=== PATIENT | female | born 1945 | race Caucasian/White ===

== ENCOUNTER → 2017-09-08 | Outpatient (CLI) | payer MEDICARE ==
[~2017-09-08] MED LIST: ALEN70TA43 PO; ALPR-429 PO; ATEN-1 PO; ATOR-1 PO; ATOR10TA24 PO; ATOR20TA65 PO; AUG875 PO; CHOL200074 PO; DIGO125T73 PO; DOCU100T19 PO; DRON400T4 PO; ENOX60DI10 SQ; FLE100 PO; FLEC50TA16 PO; FLU60SYR30 IM ONLY; HYDR-3078 PO; KET10 PO; LEVE-14 PO; LEVE750T51 PO; LOR5/325 PO; LOR75 PO; MECL25TA9 PO; METO100T20 PO; METO50TA19 PO; OND4 PO; OXYGEN INH; PNEU0.5D3 IM; PROM-110 PO; SERT-184 PO; SERT25TA90 PO; WARF3TAB35 PO; WARF4TAB46 PO; WARF5TAB23 PO
[2017-09-08 11:39] LABS: PLATELET COUNT, AUTOMATED 292 K/uL (150-450)
[2017-09-08 11:49] LABS: LDL CHOLESTEROL 54 mg/dl
== END ==
LOC: LAB 10:26
PROVIDERS: ATTEND Emergency Medicine
DX: I48.0 Paroxysmal atrial fibrillation (principal); E78.5 Hyperlipidemia, unspecified; I10 Essential (primary) hypertension
CPT/HCPCS: 36415; 82040; 82247; 82310; 82374; 82435; 82465; 82565; 82947; 83718; 84075; 84132; 84155; 84295; 84450; 84460; 84478; 84520; 85025

== ENCOUNTER → 2018-09-22 | Outpatient (CLI) | payer MEDICARE ==
[~2018-09-22] MED LIST changes: +LEVE750T4 PO; -LEVE750T51 PO; +MIRT-1 PO
--- NOTE | 2018-09-22 10:28 | RADIOLOGY IMAGING REPORT ---
[place] [facility] [place]IENT NAME: Shirley Mcgowan : 1945 MR: [id number] V: [id number] EXAM DATE: ORDERING PHYSICIAN: MYRON POST TECHNOLOGIST: Location: [facility] - [place] Patient: Shirley Mcgowan : 1945 Visit/Account:[id number] Date of Sevice: 09/22/2018 DEXA Scan Clinical history: Screening. Comparison: 08/27/2016. LUMBAR SPINE: The bone mineral density (BMD) measured from L1-L4 correlates with a Z-score of 0.4 and a T-score of -1.7 which is osteopenic as defined by the World Health Organization. The sergey esponding risk of fracture in the lumbar spine is moderately increased compared with a young adult re [facility] population. This value has increased by 6.7 % since the prior study. More than 5% change is considered significant. HIP: Bone mineral density (BMD) measured in the Left Total Hip region correlates with a Z-score of 0.6 and a T-score of -2.5. The T-score of the femoral neck is -2.4. The lower of the two T-scores is osteopenic bordering on osteoporotic as defined by the World Health Organization. The corresponding risk of fracture in the hip is significantly increased at least fourfold compared with a young adult reference population. This value has increased by 3.7 % since the prior study. More than 5% change is considered significant. Bone mineral density (BMD) measured in the Left Femoral Neck region measures 0.705 g/cm?. IMPRESSION: 1. Lumbar spine: Osteopenic. There has been significant increase in the bone mineral density since the previous exam. 2. 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 There has been no significant change in th e bone mineral density since the previous exam. The next DEXA scan of this patient should include the following sites: L1-L4 and Left hip. FRAX? WHO Fracture Risk Assessment Tool link: <http://www.shef.ac.uk/FRAX/tool.jsp?locationValue=9> PLEASE NOTE: 1) The World Health Organization defines low BMD as follows: T-score Normal > -1 Osteopenia < -1 and > -2.5 Osteoporosis < -2.5 without fractures Established osteoporosis < -2.5 with fractures 2) In general, you may wish to consider: Diagnosis Treatment Follow-up DEXA Normal BMD Prevention 2-3 years Osteopenia Prevention/therapy 1-2 years Osteoporosis Therapy Yearly 3) Fracture risk estimated from the T-score is more accurate for vertebral fractures (often spontane ous) than for hip fractures. Report Dictated By: Gustavo Coppola MD at 09/22/2018 10:21 AM Report E-Signed By: Gustavo Coppola MD at 09/22/2018 10:24 AM WSN:[email or web address]
--- NOTE | 2018-09-22 17:17 | RADIOLOGY IMAGING REPORT ---
FACILITY: [facility] - [place] PATIENT NAME: MEHNAZ VAUGHAN : [id number] MR: [id number] V: [id number] EXAM DATE: [id number] ORDERING PHYSICIAN: MYRON POST TECHNOLOGIST: Andreia Miramontse PROCEDURE:BILATERAL DIGITAL SCREENING MAMMOGRAM WITH CAD ASSISTED INTERPRETATION & 3D TOMOSYNTHESIS COMPARISON:Prior mammograms 08/27/16. INDICATIONS:screening FINDINGS: The breasts are heterogeneously dense which can obscure small masses. The parenchymal pattern has remained stable allowing for difference in mammographic technique & patient positioning. DIAGNOSTIC CATEGORY 1--NEGATIVE. RECOMMENDATIONS: ROUTINE MAMMOGRAM AND CLINICAL EVALUATION. IMPRESSION: BIRADS 1: Negative. No significant abnormality is seen. Dictated by: Alysia Novoa M.D. on 09/22/2018 at 14:27 Transcribed by: BEVERLEY on 09/22/2018 at 14:49 Approved by: Alysia Novoa M.D. on 09/22/2018 at 17:16 [facility]
== END ==
LOC: MAMO 00:49
PROVIDERS: ATTEND Emergency Medicine
DX: Z12.31 Encounter for screening mammogram for malignant neoplasm of breast (principal); M85.89 Other specified disorders of bone density and structure, multiple sites
CPT/HCPCS: 77063; 77067; 77080

== ENCOUNTER → 2018-09-29 | Outpatient (CLI) | payer MEDICARE ==
[~2018-09-29] MED LIST changes: +REGADENOSON 0.4 MG/5 ML SYR ONE
--- NOTE | 2018-09-29 12:33 | RADIOLOGY IMAGING REPORT ---
FACILITY: [facility] [place] PATIENT NAME: Shirley Mcgowan : 1945 MR: [id number] V: [id number] EXAM DATE: [id number] ORDERING PHYSICIAN: NYDIA MARIN TECHNOLOGIST: Location: [facility] - [place] Patient: Shirley Mcgowan : 1945 Visit/Account:[id number] Date of Sevice: 09/29/2018 EXAMINATION: Single isotope SPECT imaging with regadenoson infusion and gated SPECT imaging. DATE OF EXAMINATION: September 29, 2018. DATE OF INTERPRETATION: September 29, 2018. REQUESTING PHYSICIAN: NYDIA MARIN. INDICATION: The patient is a 73-year-old female evaluated for chest pain. PROCEDURE: After informed consent the patient received an intravenous injection of 11.7 mCi of Tc-99 m sestamibi followed at an appropriate time interval by rest imaging. The patient then subsequently received an intravenous infusion of 0.4 mg of regadenoson per protocol without complication. Resting heart rate was 66 bpm with a peak heart rate of 80 bpm. Blood pressure at rest was 103 / 82 and fol lowing infusion was 125 / 93. Baseline EKG demonstrates atrial pacing. There were no EKG changes of ischemia following infusion. Symptoms were nonspecific. The patient then received an intravenous i njection of 32.0 mCi of Tc-99m sestamibi followed by stress imaging. RAW DATA: Examination of the summed raw data revealed a good quality study. MYOCARDIAL PERFUSION: The tomographic images demonstrate normal myocardial perfusion tracer uptake o n both stress and rest images. No fixed or reversible defect noted. GATED IMAGES: The gated images demonstrate an ejection fraction greater than 70% with no wall motion abnormality. IMPRESSION: 1. Normal myocardial perfusion scan with no evidence of ischemia or prior infarction 2. Normal myocardial perfusion scan. 3. Normal LV systolic function; LVEF greater than 70%. 4. Based on the results of this exam, the patient appears to be at low risk for future cardiovascular events. Report Dictated By: Jeanne Howell at 09/29/2018 12:26 PM Report E-Signed By: Jeanne Howell at 09/29/2018 12:28 PM WSN:[id number]
--- NOTE | 2018-09-29 16:31 | RT STRESS TEST REPORT ---
FACILITY: [facility] - [place] PATIENT NAME: MEHNAZ VAUGHAN : [id number] MR: [id number] V: [id number] EXAM DATE: ORDERING PHYSICIAN: WAYLON OTHER TECHNOLOGIST: Minh Acquisition Time: 2018-09-29 09:27:07 Total Exercise Time: 00:01:00 Test Indications: Dizzy Spells Medications: Protocol: LEXISCAN Max HR: 080 BPM 54% of Pred: 147 BPM Max BP: 125/093 mmHG Max Work Load: 1.0 METS resting EKG shows Paced Atrial rythm No ischemic changes noted Impression Unremakable EKG during the tanisha Scan nuclear medicine report to follow Confirmed by HENRIQUE OLSON ([id number]) on 09/29/2018 4:30:44 PM Referred By: MYRON POST Overread By: HENRIQUE OLSON
== END ==
LOC: RESP 01:08
PROVIDERS: ATTEND Internal Medicine Cardiovascular Disease
DX: R07.9 Chest pain, unspecified (principal)
CPT/HCPCS: 78452; 93017; A9500; J2785

== ENCOUNTER → 2018-10-12 | Outpatient (CLI) | payer MEDICARE ==
[~2018-10-12] MED LIST changes: -REGADENOSON 0.4 MG/5 ML SYR ONE
== END ==
LOC: AUD 12:45
PROVIDERS: ATTEND Specialist
DX: H81.13 Benign paroxysmal vertigo, bilateral (principal)
CPT/HCPCS: 92557; 92570

== ENCOUNTER → 2018-11-02 | Outpatient (CLI) | payer MEDICARE ==
--- NOTE | 2018-11-02 13:56 | RADIOLOGY IMAGING REPORT ---
FACILITY: [facility] PATIENT NAME: Shirley Mcgowan : 1945 MR: [id number] V: [id number] EXAM DATE: ORDERING PHYSICIAN: NYDIA MARIN TECHNOLOGIST: Location: [facility] - [place] Patient: Shirley Mcgowan : 1945 Visit/Account:[id number] Date of Sevice: 11/02/2018 CAROTID HISTORY: Postural dizziness with presyncope COMPARISON: None. FINDINGS: Grayscale, duplex and color Doppler interrogation of the extracranial carotid and vertebral arteries was performed bilateral. On the right, peak systolic velocities within the common and internal carotid arteries are 59 and 82 cm/sec respectively. There is a small amount of plaque in the distal right common carotid artery ext ending into the right carotid bulb and proximal right internal carotid artery. Antegrade flow within the common, internal and external carotid arteries as well as vertebral artery. ICA/CCA ratio 1.4. On the left, peak systolic velocities within the common and internal carotid arteries are 55 and 62 c m/sec respectively. A small intimal thickening in the left common carotid artery with a small amount of soft plaque at the left carotid bulb. Antegrade flow within the common, internal and external ca rotid arteries as well as vertebral artery. ICA/CCA ratio 1.1. IMPRESSION: Is a small amount of plaque in the distal right common carotid artery extending into the right caroti d bulb and proximal right internal carotid artery although no hemodynamically significant lesions shiv ntified Small amount of intimal thickening in the left common carotid artery and a small amount soft plaque a t the left carotid bulb Velocity criteria are extrapolated from diameter data as defined by the Society of Radiologists in Ul trasound Consensus Conference Radiology 2003; 229;340-346 Report Dictated By: Alysia Novoa MD at 11/02/2018 1:49 PM Report E-Signed By: Alysia Novoa MD at 11/02/2018 1:51 PM WSN:[email or web address]
== END ==
LOC: US 10-30 13:48
PROVIDERS: ATTEND Internal Medicine Cardiovascular Disease
DX: I65.23 Occlusion and stenosis of bilateral carotid arteries (principal)
CPT/HCPCS: 93880

== ENCOUNTER → 2018-11-13 | Day surgery (SDC) | payer MEDICARE ==
[~2018-11-13] VITALS: Ht 157.5 cm; Wt 53.5 kg
[2018-11-13] VITALS (11 sets, daily range): BP systolic 71–123; BP diastolic 43–86
[~2018-11-13] MED LIST changes: +LIDOCAINE/SOD BICARB 8.4% SYR ID ONE; +NORMOSOL R SOLN(*) 1000 ML BAG 1,000 ML IV PRN; +PHENYLEPHRINE 10 MG/1 ML VIAL ONE
[2018-11-13 08:25] LABS: INR 1.01
--- NOTE | 2018-11-13 09:14 | Short(Outpt) Discharge Summary ---
Discharge Summary Reason for Hosp/Final Diag: (1) Fecal occult blood test positive Hospital Course & Plan: pt presented for colonoscopy. she tolerated the procedure well. she will be discharged home when criteria met. Departure Discharge to: Home Discharge Instructions Home Meds Active Scripts Mirtazapine (REMERON) 15 Mg Tablet, 15 MG PO QHS, #90 TAB 3 Refills Prov:MYRON POST MD 09/28/18 Alendronate Sodium (FOSAMAX) 70 Mg Tablet, 70 MG PO QWK, #14 TAB 3 Refills Prov:MYRON POST MD 08/25/18 Alprazolam (XANAX) 0.5 Mg Tablet, 1 TAB PO BID, #180 TAB 1 Refill Prov:MYRON POST MD 08/25/18 Levetiracetam (KEPPRA) 500 Mg Tablet, 3 TAB PO BID, #1 TAB Prov:MYRON POST MD 02/25/18 Warfarin Sodium (COUMADIN) 4 Mg Tablet, 1 TAB PO QDAY, #30 TAB 0 Refills 4 mg daily and 6 mg on Fridays Prov:MYRON POST MD 09/08/17 Atorvastatin Calcium (ATORVASTATIN CALCIUM) 20 Mg Tablet, 1 TAB PO QDAY, #90 TAB 3 Refills Prov:MYRON POST MD 09/08/17 Reported Medications Cholecalciferol (Vitamin D3) (VITAMIN D-3) 2,000 Unit Capsule, 2000 UNIT PO DAILY, CAPSULE 03/10/17 Flecainide Acetate (FLECAINIDE ACETATE) 50 Mg Tablet, 50 MG PO 2-1, TAB 2 tabs in am and 1 in pm 03/10/17 Metoprolol Succinate (METOPROLOL SUCCINATE) 100 Mg Tab.er.24h, 1 TAB PO QDAY, TAB 01/03/16 Warfarin Sodium (COUMADIN) 3 Mg Tablet, 1 TAB PO QDAY, TAB 06/12/15 Diet: Regular Activity: As Tolerated Special Instructions: we will call you in 10 days with results. URIEL STEVENSON November 13, 2018 09:14
== END ==
LOC: OR 00:08
PROVIDERS: ATTEND Surgery
DX: D12.8 Benign neoplasm of rectum (principal); K57.30 Diverticulosis of large intestine without perforation or abscess without bleeding
CPT/HCPCS: 00811; 36415; 45385; 85610; 88305; J2370